=== PATIENT | male | born 1975 | race Caucasian/White ===

== ENCOUNTER 2022-12-03 15:13 | Outpatient (CLI) | payer BC, SELFPAY ==
[2022-12-03 15:38] LABS: Abs Immature Grans 0.04 10^3/uL (0.0-0.06); Absolute Basophil Count 0.07 10^3/uL (0.0-0.2); Absolute Eosinophil Count 0.25 10^3/uL (0.0-0.7); Absolute Lymphocyte Count 2.21 10^3/uL (1.2-3.4); Absolute Monocyte Count 0.58 10^3/uL (0.1-0.8); Absolute Neutrophil Count 4.86 10^3/uL (1.2-6.7); Basophils % 0.9; Eosinophils % 3.1; HCT 45.9 % (40.0-50.0); Immature Grans % 0.5; Lymphocytes % 27.6; MCH 30.1 pg (27.0-33.0); MCHC 34.9 % (32.0-36.0); MCV 86 fL (80-95); MPV 9.6 fL (8.0-11.0); Monocytes % 7.2; Neutrophils % 60.7; Platelet Count 256 10^3/uL (130-400); RBC 5.31 10^6/uL (4.36-5.78); RDW 12.3 % (11.8-14.1); RDW-SD 38.8 fL; WBC 8.01 10^3/uL (4.4-10.8)
[2022-12-03 17:20] LABS: Lithium 0.3 mmol/l (0.6-1.2)
[2022-12-03 17:24] LABS: ALT 28 U/L (16-63); AST 16 U/L (15-37); Albumin 4.2 g/dL (3.4-5.0); Alkaline Phosphatase 67 U/L (46-116); Anion Gap 9.8 mmol/L (3-11); BUN 27 mg/dL (7-18); Bilirubin, Total 0.5 mg/dL (0.2-1.0); CO2 24.2 mmol/L (21.0-32.0); CREATININE 1.2 mg/dL (0.70-1.30); Calcium 8.9 mg/dL (8.5-10.1); Chloride 103 mmol/L (98-107); Glucose 96 mg/dL (74-106); Potassium 3.9 mmol/L (3.5-5.1); Sodium 137 mmol/L (136-145); Total Protein 6.9 g/dL (6.4-8.2)
[2022-12-06 12:30] LABS: TB Interpretation Negative (Negative)
[2022-12-06 12:39] LABS: HIV 1 RNA Qualitative Undetected copies/mL (Undetected)
[2022-12-06 15:34] LABS: Absolute CD3 2011 Cells/uL (840-2669); Absolute CD8 982 Cells/uL (154-1097); CD3 87 % (56-84); CD4 42 % (31-64); CD8 43 % (9-39)
== END 2022-12-03 15:14 | disposition home or self-care (01) ==
LOC: LBO 15:15
PROVIDERS: Visit Provider Nurse Practitioner Family
DX: B20 Human immunodeficiency virus [HIV] disease (principal); Z79.899 Other long term (current) drug therapy
CPT/HCPCS: 36415; 80053; 87536; 80178; 85025; 86359; 86360; 86480

== ENCOUNTER 2022-12-08 16:56 | Outpatient (CLI) | payer BC, SELFPAY ==
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
== END 2022-12-08 16:57 | disposition home or self-care (01) ==
LOC: CCC 17:08
PROVIDERS: PCP Family Medicine; Visit Provider Nurse Practitioner Family
DX: B20 Human immunodeficiency virus [HIV] disease (principal); Z79.899 Other long term (current) drug therapy; G47.00 Insomnia, unspecified; F31.9 Bipolar disorder, unspecified
CPT/HCPCS: 99205

== ENCOUNTER → 2023-03-09 02:06 | Outpatient (CLI) | payer BC, SELFPAY ==
--- NOTE | 2023-03-09 08:30 | DI.RAD_ITS ---
Exam(s) XR CHEST 2V PA LATERAL EXAM: XR CHEST 2V PA LATERAL CLINICAL HISTORY: Cough R05.8 TECHNIQUE: 2D digital imaging was performed of the chest. Two images were obtained. PA and lateral views were obtained. COMPARISON: No exams were available for comparison FINDINGS: MEDIASTINUM: Normal. HEART: Normal. PULMONARY VASCULATURE: Normal. LUNGS: Clear. PLEURAL SPACE: No pleural effusion or pneumothorax. BONE:Within normal limits for the patient's age. OTHER FINDINGS:Normal. IMPRESSION: No acute pulmonary findings. DATA REPOSITORY: RADIATION DOSE DELIVERED:
== END ==
PROVIDERS: PCP Family Medicine; Visit Provider Physician Assistant Medical
DX: R05.8 Other specified cough (principal)
CPT/HCPCS: 71046

== ENCOUNTER 2023-05-31 05:02 | Outpatient (CLI) | payer BC, SELFPAY ==
[2023-05-31 14:15] LABS: Lithium 0.4 mmol/l (0.6-1.2)
== END 2023-05-31 05:03 | disposition home or self-care (01) ==
LOC: LBO 05:02
PROVIDERS: PCP Family Medicine; Visit Provider Nurse Practitioner Psychiatric/Mental Health
DX: Z51.81 Encounter for therapeutic drug level monitoring (principal)
CPT/HCPCS: 36415; 80178; 84443

== ENCOUNTER 2023-06-02 12:38 | Outpatient (CLI) | payer BC, SELFPAY ==
--- NOTE | 2023-06-02 13:00 | RT.EKG_ITS ---
APPROVED REPORT Exam: Resting ECG Reason for Exam: High risk medication use Patient Location: O HR:67 bpm ECG Measurements Heart Rate 67 AXIS SC 166 P 73 QRSd 107 QRS 74 QT 391 T 61 QTc 413 Conclusion Sinus rhythm...normal P axis, V-rate 50- 99 Prominent P waves, nondiagnostic...wide/notched/biphasic P waves ST elev, probable normal early repol pattern...ST elevation, age<55
== END 2023-06-02 12:39 | disposition home or self-care (01) ==
PROVIDERS: PCP Family Medicine; Visit Provider Nurse Practitioner Psychiatric/Mental Health
DX: Z79.899 Other long term (current) drug therapy (principal)
CPT/HCPCS: 93005; 93010

== ENCOUNTER 2023-06-15 04:24 | Outpatient (CLI) | payer BC, MEDICAID, SELFPAY ==
[2023-06-15 15:06] LABS: Lithium 0.4 mmol/l (0.6-1.2)
== END 2023-06-15 04:25 | disposition home or self-care (01) ==
LOC: LBO 04:24
PROVIDERS: PCP Family Medicine; Visit Provider Nurse Practitioner Psychiatric/Mental Health
DX: Z51.81 Encounter for therapeutic drug level monitoring (principal)
CPT/HCPCS: 36415; 80178

== ENCOUNTER 2023-06-28 05:58 | Outpatient (CLI) | payer BC, MEDICAID, SELFPAY ==
[2023-06-28 15:34] LABS: ALT 41 U/L (16-63); AST 17 U/L (15-37); Albumin 3.9 g/dL (3.4-5.0); Alkaline Phosphatase 57 U/L (46-116); Anion Gap 8.3 mmol/L (3-11); BUN 18 mg/dL (7-18); Bilirubin, Direct 0.1 mg/dL (0.0-0.2); Bilirubin, Total 0.3 mg/dL (0.2-1.0); CO2 28.7 mmol/L (21.0-32.0); CREATININE 1.1 mg/dL (0.70-1.30); Calcium 8.9 mg/dL (8.5-10.1); Chloride 104 mmol/L (98-107); Estimated GFR 84.37 (mL/min/1.73m2); Glucose 170 mg/dL (74-106); PHOSPHORUS 4.1 mg/dL (2.6-4.7); Potassium 3.6 mmol/L (3.5-5.1); Sodium 141 mmol/L (136-145); Total Protein 7.1 g/dL (6.4-8.2)
== END 2023-06-28 05:59 | disposition home or self-care (01) ==
LOC: LBO 05:58
PROVIDERS: PCP Family Medicine; Visit Provider Nurse Practitioner Psychiatric/Mental Health
DX: Z51.81 Encounter for therapeutic drug level monitoring (principal)
CPT/HCPCS: 36415; 80069; 80076

== ENCOUNTER 2023-07-04 05:33 | Outpatient (CLI) | payer MEDICAID, SELFPAY ==
[2023-07-04 14:13] LABS: Abs Immature Grans 0.05 10^3/uL (0.0-0.06); Absolute Basophil Count 0.07 10^3/uL (0.0-0.2); Absolute Eosinophil Count 0.28 10^3/uL (0.0-0.7); Absolute Lymphocyte Count 2.49 10^3/uL (1.2-3.4); Absolute Monocyte Count 0.66 10^3/uL (0.1-0.8); Absolute Neutrophil Count 4.57 10^3/uL (1.2-6.7); Basophils % 0.9 %; Eosinophils % 3.4 %; HCT 46.8 % (40.0-50.0); HGB 15.6 g/dL (13.5-17.5); Immature Grans % 0.6 %; Lymphocytes % 30.7 %; MCH 30.1 pg (27.0-33.0); MCHC 33.3 % (32.0-36.0); MCV 90 fL (80-95); MPV 9.4 fL (8.0-11.0); Monocytes % 8.1 %; Neutrophils % 56.3 %; Platelet Count 266 10^3/uL (130-400); RBC 5.18 10^6/uL (4.36-5.78); RDW 12.7 % (11.8-14.1); RDW-SD 41.5 fL; WBC 8.12 10^3/uL (4.4-10.8)
[2023-07-04 15:02] LABS: ALT 62 U/L (16-63); AST 18 U/L (15-37); Albumin 4.1 g/dL (3.4-5.0); Alkaline Phosphatase 79 U/L (46-116); BUN 20 mg/dL (7-18); Bilirubin, Total 0.4 mg/dL (0.2-1.0); CREATININE 0.9 mg/dL (0.70-1.30); Calcium 8.9 mg/dL (8.5-10.1); Chloride 105 mmol/L (98-107); Estimated GFR 107.33 (mL/min/1.73m2); Glucose 110 mg/dL (74-106); Potassium 4.1 mmol/L (3.5-5.1); Sodium 141 mmol/L (136-145); Total Protein 7.1 g/dL (6.4-8.2)
[2023-07-05 16:22] LABS: 4/8 Ratio 0.84 (>=0.90); Absolute CD3 2239 Cells/uL (840-2669); Absolute CD8 1213 Cells/uL (154-1097); CD3 89 % (56-84); CD4 40 % (31-64); CD8 48 % (9-39)
[2023-07-07 11:27] LABS: HIV 1 RNA Qualitative Undetected copies/mL (Undetected)
== END 2023-07-04 05:34 | disposition home or self-care (01) ==
PROVIDERS: PCP Family Medicine; Visit Provider Nurse Practitioner Family
DX: B20 Human immunodeficiency virus [HIV] disease (principal); Z79.899 Other long term (current) drug therapy
CPT/HCPCS: 36415; 80053; 87536; 85025; 86359; 86360

== ENCOUNTER → 2023-07-20 04:40 | Outpatient (CLI) | payer MEDICAID, SELFPAY ==
--- NOTE | 2023-07-20 12:30 | DI.US_ITS ---
APPROVED REPORT EXAM: Comprehensive 2D, Doppler, and color-flow Echocardiogram Patient Location: Out-Patient Gis Developer: Nikki Taylor RDCS (AE) Indications: Stimulant use, unspecified, uncomplicated Other Information Study Quality: Adequate Conclusion Normal left ventricular wall thickness and chamber size. Ejection fraction is 58%. Wall motion is n ormal Normal right ventricular size and function Both atria are normal in size There is no structural or hemodynamically significant valvular disease Estimated right ventricular systolic pressure is 29 mmHg Wall motion Left Ventricle The left ventricle is normal size. The left ventricular systolic function is normal. The left ventric ular ejection fraction is within the normal range. There is normal left ventricular wall thickness. T here is normal LV segmental wall motion. There is no ventricular septal defect visualized. LVEF is 58 %. Right Ventricle The right ventricle is normal size. The right ventricular systolic function is normal. Atria The left atrium size is normal. The right atrium size is normal. The interatrial septum is intact wit h no evidence for an atrial septal defect. Aortic Valve The aortic valve is normal in structure. Aortic valve is trileaflet. There is no aortic valvular sten osis. No aortic regurgitation is present. Mitral Valve The mitral valve is normal in structure. No evidence of mitral valve stenosis. Trace to mild mitral r egurgitation. Tricuspid Valve The tricuspid valve is normal in structure. There is no tricuspid valve stenosis. Trace to mild tric uspid regurgitation. The RVSP is 28.8 mmHg. Pulmonic Valve The pulmonary valve is normal in structure. There is no pulmonic valvular stenosis. Trace pulmonic re gurgitation. Great Vessels The aortic root is normal in size. The ascending aorta is normal in size. Aortic arch is not well vis ualized. IVC is normal in size and collapses >50% with inspiration. Pericardium There is no pericardial effusion. 2D Dimensions IVSD d PLAX 1.00 cm M: 0.6-1.2 Ao Root d 2.67 cm M: 3.1 - 3.7 LVPW d PLAX 1.02 cm M: 0.6 - 1.2 Ao Asc Diam d 3.02 cm M: 2.6 - 3.4 LVID d PLAX 4.68 cm M: 4.2 - 5.8 LVDs 3.13 cm M: 2.5 - 4.0 LV EF Teichholz 61.6 % FS 33.08 % LV EDV (Teich) 101.4 mL LV ESV (Teich) 38.9 mL M-Mode TAPSE 2.36 cm (M/F) >1.7 Auto EF LV EDV A4C 127.0 mL LV EDV A2C 126.8 mL LV EDV BP 129.0 mL LV ESV A4C 55.5 mL LV ESV A2C 55.1 mL LV ESV BP 55.6 mL LVEF(%) A4C 56.3 % LVEF(%) A2C 56.5 % LVEF(%) BP 56.9 % LV SV A4C 71.5 ml LV SV A2C 71.7 ml LV SV BP 73.4 ml LV CO A4C 3.7 L/min LV CO A2C 3.5 L/min LV CO BP 3.6 L/min HR A4C 52.25 BPM HR A2C 49.25 BPM LV EDV Index (BP) LA Volume LA Length A4C 5.5 cm LA Length A2C 4.7 cm LA Area A4C s 19.56 cm2 LA Area A2C s 17.70 cm2 LA Vol A4C A-L 59.23 mL LA Vol A2C A-L 56.35 mL LA Vol Biplane A-L 62.3 mL LA Vol/BSA A4C A-L LA Vol/BSA A2C A-L LA Vol/BSA BP A-L 31.1 mL/m2 LA Vol A4C MOD 53.3 mL LA Vol A2C MOD 51.1 mL LA Vol BP MOD 55.9 mL RA Volume RA Area A4C 15.9 cm2 RA ESV A4C (A-L) 46.8mL RA Vol/BSA A4C A-L RA Length A4C 4.6 cm RA ESV A4C (MOD) 44.2mL LV Diastology MV E' medial 0.092 (>0.07 m/s) MV E Vmax 0.85 (0.4-1.3 m/s) MV E/E' MED 9.21 (<14) MV A Vmax 0.80 (0.4-1.3 m/s) MV E' lateral 0.114 (>0.1 m/s) E/A Ratio 1.1 MV E/E' LAT 7.41 (<14) MV E' Average 0.103 m/s MV E/E'(average) 8.21 Aortic Valve AoV Vmax 1.62 m/s LVOT Vmax 1.11 m/s AoV Peak Grad 10.5 mmHg LVOT Peak Grad 5.0 mmHg AoV Area (Vmax) 2.18 cm2 LVOT VTI 0.221 m AoV VTI 0.335 m LVOT Mean Grad 3.0 mmHg AoV Mean Brendan. 1.06 m/s LVOT SV 70.44 mL AoV Mean Grad 5.3 mmHg LVOT Diam s 2.00 cm AoV Area (VTI) 2.10 cm2 Velocity Ratio 0.69 Mitral Valve MV DT 206 (160-240 msec) MV Vmax TIPS 0.91 m/s MV Mean Grad 0.9 (<2mmHg) MV VTI 0.316 m Pulmonary Valve PV Vmax 1.11 (0.5-1.5 m/s) RVOT Vmax 0.80 m/s PV Peak Grad 5.0 mmHg RVOT Peak Gr. 2.6 mmHg PV Mean Brendan 0.78 m/s RVOT VTI 0.201 m PV Mean Grad 2.8 mmHg RVOT Mean Gr. 1.6 mmHg Tricuspid Valve RA Pressure 3.00 mmHg TR Vmax 2.54 m/s TV S' 0.15 m/s TR Peak Grad 25.8 mmHg RVSP (TR) 28.8 mmHg
== END ==
PROVIDERS: PCP Family Medicine; Visit Provider Nurse Practitioner Family
DX: Z79.899 Other long term (current) drug therapy (principal); I37.1 Nonrheumatic pulmonary valve insufficiency; I34.0 Nonrheumatic mitral (valve) insufficiency; I36.1 Nonrheumatic tricuspid (valve) insufficiency
CPT/HCPCS: 93306

== ENCOUNTER 2023-08-01 05:17 | Outpatient (CLI) | payer MEDICAID, SELFPAY ==
[2023-08-01] MEDS: Levalbuterol HFA 15 GM INH 4 PUFF IH (14:10)
[2023-08-01] MEDS: Inhaler, Assist Device 1 EACH MC (14:10)
--- NOTE | 2023-08-02 12:39 | W.PFT ---
Date of service: 08/01/23 Time of Service: 13:05 Pulmonary Function Test Result Indications: Asthma Interpretation Spirometry: There is no airflow limitation. No bronchodilator response. Lung Volumes: There is hyperinflation and air trapping. Diffusion Capacity: Normal diffusion Airway Pressure: Increased airways resistance. Impression No airflow obstruction with air trapping and increased airways resistance which could be consistent with asthma. Clinical Correlation therefore is recommended.
== END 2023-08-01 05:18 | disposition home or self-care (01) ==
LOC: RT 05:17
PROVIDERS: PCP Family Medicine; Visit Provider Nurse Practitioner Family
DX: J45.909 Unspecified asthma, uncomplicated (principal)
CPT/HCPCS: 94060; 94726; 94729